=== PATIENT | male | born 1990 | race African-American/Black ===

== ENCOUNTER 2017-09-11 15:58 | Emergency (ER) | payer OTHER ==
[2017-09-11 16:03] VITALS: BP 157/88; PULSE 120; TEMP 98; BMI 36.6
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
[2017-09-11] MEDS ORDERED: morphine SULFATE 4 MG/ML VIAL IVPUSH ONE (16:27)
[2017-09-11] MEDS ORDERED: morphine CARPU-JECT 2 MG/1 ML DISP.SYRIN IM ONE (17:34)
[2017-09-11] MEDS ORDERED: MORPHINE SULFATE 10 MG/1 ML *VIAL ONE (17:36)
[2017-09-11] MEDS ORDERED: morphine CARPU-JECT 4 MG/1 ML DISP.SYRIN IVPUSH ONE (19:04)
[2017-09-11] MEDS ORDERED: morphine SULFATE 4 MG/ML VIAL ONE (19:27)
--- NOTE | 2017-09-11 21:17 | PDOC ---
History of Present Illness - General Chief Complaint: Injury Stated Complaint: INJURY, FALL Time Seen by Provider: 09/11/17 16:14 Past History - Past Medical History Allergies/Adverse Reactions: Allergies Allergy/AdvReac Type Severity Reaction Status Date / Time No Known Allergies Allergy Verified 09/11/17 16:00 Home Medications: Ambulatory Orders NK [No Known Home Medication] 09/11/17 COPD: No - Suicide/Smoking/Psychosocial Hx Smoking History: Current every day smoker Number of Cigarettes Smoked Daily: 5 Information on smoking cessation initiated: No Hx Alcohol Use: No Drug/Substance Use Hx: No Substance Use Type: None *Physical Exam - Vital Signs Last Vital Signs Temp Pulse Resp BP Pulse Ox 98 F 120 H 18 157/88 100 09/11/17 16:00 09/11/17 16:00 09/11/17 16:00 09/11/17 16:00 09/11/17 16:00 ED Treatment Course - Medications Given in the ED: ED Medications Discontinued Medications Generic Name Dose Route Start Last Admin Trade Name Mayi PRN Reason Stop Dose Admin Morphine Sulfate 4 mg 09/11/17 16:27 09/11/17 17:35 Morphine Sulfate IVPUSH 09/11/17 16:28 Not Given ONCE ONE Morphine Sulfate 4 mg 09/11/17 17:34 09/11/17 17:42 Morphine Injection - IM 09/11/17 17:35 4 mg ONCE ONE Administration Morphine Sulfate 4 mg 09/11/17 19:04 09/11/17 19:29 Morphine Injection - IVPUSH 09/11/17 19:05 4 mg ONCE ONE Administration *DC/Admit/Observation/Transfer - Referrals Referrals: LUISA MONSIVAIS [Primary Care Provider] - - Patient Instructions - Post Discharge Activity
--- NOTE | 2017-09-11 22:00 | PDOC ---
Attending Attestation - Resident Resident Name: Cindy Davila - ED Attending Attestation I have performed the following: I have examined & evaluated the patient, The case was reviewed & discussed with the resident, I agree w/resident's findings & plan, Exceptions are as noted - HPI HPI: 09/11/17 21:59 27 yo male fell and sustained left ankle pain - Physicial Exam PE: 09/11/17 22:00 alert and conversant 27 yo male p/w tender and swollen left ankle head ncat,no hematoma,no abrasions neck no cervical tenderness lungs cta b/l no ribcage pain abd soft,nontender extremities left knee abrasion, left ankle swelling and tenderness,good pt and dp pulses neuro axo3 09/11/17 22:03 - Medical Decision Making 09/11/17 22:05 radiograph reveals fractured fibula -pt's left ankle was splinted -L knee abasion cleaned -referred to Dr Lazaro
== END 2017-09-11 22:05 | disposition home or self-care (01) ==
LOC: JER 15:58
PROC: 3E023NZ Introduction of Analgesics, Hypnotics, Sedatives into Muscle, Percutaneous Approach (ICD-10-PCS; principal; 2017-09-11)
PROC: 3E033NZ Introduction of Analgesics, Hypnotics, Sedatives into Peripheral Vein, Percutaneous Approach (ICD-10-PCS; 2017-09-11)
PROC: 2W3RX1Z Immobilization of Left Lower Leg using Splint (ICD-10-PCS; 2017-09-11)
DX: S82.492A Other fracture of shaft of left fibula, initial encounter for closed fracture (principal); S82.245A Nondisplaced spiral fracture of shaft of left tibia, initial encounter for closed fracture; S80.212A Abrasion, left knee, initial encounter; Y04.2XXA Assault by strike against or bumped into by another person, initial encounter; Y93.89 Activity, other specified; Y92.89 Other specified places as the place of occurrence of the external cause; Y99.8 Other external cause status; Y07.9 Unspecified perpetrator of maltreatment and neglect
CPT/HCPCS: 29515; 73523-TC-FY; 73552-TC-LT-FY; 73562-TC-LT-FY; 73610-TC-LT-FY; 73630-TC-LT; 96372; 96374; 99282-25

== ENCOUNTER 2017-09-29 06:09 | Day surgery (SDC) | payer OTHER ==
[2017-09-23 09:32] VITALS: BMI 37.1
[2017-09-29] MEDS ORDERED: ROPIVACAINE HCL 0.5% 30ML VIAL ONE (07:23)
[2017-09-29] MEDS ORDERED: MIDAZOLAM HCL 2 MG/2 ML SINGLE DOSE VIAL ONE (07:24)
[2017-09-29] MEDS ORDERED: DEXAMETHASONE SOD PHOSPHATE/PF 10 MG/ML SDV ONE (07:26)
--- NOTE | 2017-09-29 07:46 | OP ---
Operative Note - Note: Operative Date: 09/29/17 Pre-Operative Diagnosis: left ankle unstable fracture Operation: left ankle open reduction internal fixation Implants: arthrex distal fibular plate / camila boykin Post-Operative Diagnosis: Same as Pre-op Surgeon: Arcadio Macdonald [employer] Electrical Engineer: Cyrus Ramirez Anesthesiologist/BAG REPAIRER: Ugo Sosa Anesthesia: Fractional Operative Report Dictated: Yes
[2017-09-29] MEDS ORDERED: SUCCINYLCHOLINE CHLORIDE 200 MG/10 ML VIAL ONE (08:13)
[2017-09-29] MEDS ORDERED: PROPOFOL 20 ML ONE ×2 (08:13→08:23)
[2017-09-29] MEDS ORDERED: ceFAZolin SODIUM 1 GM VIAL ONE (08:27)
[2017-09-29] MEDS ORDERED: ONDANSETRON 4 MG/2 ML VIAL ONE (10:02)
[2017-09-29] MEDS ORDERED: ONDANSETRON 4 MG/2 ML VIAL IVPUSH ONE (10:07)
[2017-09-29] MEDS ORDERED: ONDANSETRON 4 MG/2 ML VIAL IVPUSH PRN (10:14)
[2017-09-29] MEDS ORDERED: oxyCODONE HCL 5 MG TABLET PO PRN ×2 (10:14)
[2017-09-29] MEDS ORDERED: LACTATED RINGERS SOLUTION 1,000 ML IV SCH (10:15)
[2017-09-29] MEDS ORDERED: oxyCODONE HCL 5 MG TABLET ONE ×2 (10:48→11:38)
[2017-09-29] MEDS ORDERED: oxyCODONE HCL 5 MG TABLET PO ONE (10:51)
[2017-09-29] MEDS ORDERED: KETOROLAC TROMETHAMINE 30 MG/1 ML VIAL ONE (11:02)
[2017-09-29] MEDS ORDERED: KETOROLAC TROMETHAMINE 30 MG/1 ML VIAL IVPUSH ONE (11:02)
--- NOTE | 2017-09-29 11:15 | OP ---
DATE OF OPERATION: 09/29/2017 PREOPERATIVE DIAGNOSIS: Left ankle unstable fracture. POSTOPERATIVE DIAGNOSIS: Left ankle unstable fracture. PROCEDURES: Left ankle open reduction and internal fixation, as well as fixation of syndesmosis. SURGEON: Arcadio Tariq MD [employer] REPORTER: Cyrus Ramirez MD, whose skillful assistance was necessary for the safe and timely performance of this procedure. ANESTHESIA: Regional plus general. COMPLICATIONS: None. IMPLANTS: Arthrex distal fibular plate, 8-hole, with two 3.5-mm lag screws, one locking and the remainder nonlocking screws for the plate, as well as two TightRopes. BLOOD LOSS: 20 mL. POSTOPERATIVE CONDITION: Stable. INDICATIONS: This is a pleasant gentleman who sustained injury to the left ankle. X-rays demonstrated a fracture with widening of the syndesmosis and medial clear space. The treatment options, including non-operative versus operative management were discussed. Operative risks were reviewed in detail, including bleeding, infection, neurovascular injury, need for further surgery, postoperative pain and stiffness, nonunion, malunion, hardware failure or cutout. We discussed medical risks, such as heart attack, stroke, DVT, PE and . I reviewed the rehabilitation protocol after surgery. I addressed all of the patient's questions and concerns. He voiced understanding and elected to proceed. PROCEDURE: The patient was brought to the operating room, after administration of a regional block in the preoperative holding area. The left lower extremity was prepped and draped in the usual sterile fashion. A preoperative dose of antibiotics was given and the usual timeout procedure was performed. The incision was now planned out over the distal fibular fracture. The incision was carried down through skin to subcutaneous tissue. Blunt spreading was used to expose the fascia. The superficial peroneal nerve was identified and protected throughout the case. The fascia was then split in line with its fibers. The periosteum was elevated both anteriorly and posteriorly off of the fibula to expose the fracture site. A long fibular spiral fracture was identified. It should be noted that prior to the incision, the limb was exsanguinated and then the tourniquet was inflated to 300 mmHg. The fracture site was now debrided of any loose debris and irrigated. A fracture-reduction forceps was now used to bring the fracture into anatomic reduction. The fracture was examined fluoroscopically and fracture reduction was satisfactory. At this point, two lag screws were placed in the [id number] direction. The more distal lag screw did cause a small crack in the fibular fracture. However, the construct was stable and both fracture-reduction forceps were removed. The neutralization plate was now chosen, an 8-hole, and affixed to the side of the bone. This was done proximally using all cortical screws. No distal hole or locking screw was used. In the third hole up, a cortical screw was used. Having secured the fracture now in place, fluoroscopy was used to examine the construct. While the fibula was in anatomic reduction, the mortise remained widened. Decision was now made to place two TightRopes. Both TightRopes were drilled across the fibula and through the tibia. The TightRope was then toggled into place, reducing down the syndesmosis and securing the overall construct. Live fluoroscopy was used now to confirm that the ankle was stable and it was. At this point, the sutures were cut. The wound was irrigated. The deep tissue was approximated using 0 Vicryl. The subcutaneous tissue was approximated using 2-0 Vicryl. The skin was closed using a running 4-0 nylon. Sterile dressings were placed. The patient was placed into a short-leg cast which was bivalved. He was extubated and transferred to the recovery room in stable condition. ARCADIO TARIQ M.D. NAVID/[id number] MTDD
[2017-09-29 11:50] VITALS: TEMP 97.7
[2017-09-29 12:46] VITALS: BP 144/82; PULSE 82
== END 2017-09-29 12:50 | disposition home or self-care (01) ==
LOC: FASU 06:09
PROVIDERS: ATTEND Orthopaedic Surgery Sports Medicine
PROC: 0SSG0ZZ Reposition Left Ankle Joint, Open Approach (ICD-10-PCS; 2017-09-29)
PROC: 0QSK04Z Reposition Left Fibula with Internal Fixation Device, Open Approach (ICD-10-PCS; principal; 2017-09-29 08:34)
DX: S82.62XA Displaced fracture of lateral malleolus of left fibula, initial encounter for closed fracture (principal); S93.432A Sprain of tibiofibular ligament of left ankle, initial encounter; X58.XXXA Exposure to other specified factors, initial encounter; Y93.9 Activity, unspecified; Y92.9 Unspecified place or not applicable
CPT/HCPCS: 73610-TC-LT-FY; 76000-TC-FY; 94760

== ENCOUNTER 2019-07-05 07:59 | Emergency (ER) | payer OTHER ==
--- NOTE | 2019-07-05 08:08 | PDOC ---
History of Present Illness - General Chief Complaint: Cold Symptoms Stated Complaint: SORE THROAT,COUGH Time Seen by Provider: 07/05/19 08:02 History Source: Patient Exam Limitations: No Limitations - History of Present Illness Initial Comments: 07/05/19 08:02 29 y/o male with cough sore throat, N/V/D, and body aches for 3 days. Taking Nyquil and Dayquil. No SOB or chest pain. No traveling. 07/05/19 08:05 Is this a multiple visit Asthma Patient?: No Past History - Past Medical History Allergies/Adverse Reactions: Allergies Allergy/AdvReac Type Severity Reaction Status Date / Time codeine Allergy Severe Itching Verified 07/05/19 08:01 Home Medications: Ambulatory Orders D-Methorphan/PE/Acetaminophen [Vicks Dayquil Liquicaps] 2 each PO PRN PRN Dm/Acetaminophen/Doxylamine [Vicks Nyquil Liquicaps] 2 each PO HS 07/05/19 Oseltamivir Phosphate [Tamiflu] 75 mg PO BID #10 capsule 07/05/19 Anemia: No Asthma: No Cancer: No Cardiac Disorders: No CVA: No COPD: No CHF: No DVT: No Dementia: No Diabetes: No GI Disorders: No Disorders: No HTN: No Hypercholesterolemia: No Liver Disease: No Seizures: No Thyroid Disease: No - Surgical History Abdominal Surgery: No Appendectomy: No Cardiac Surgery: No Cholecystectomy: No Lung Surgery: No Neurologic Surgery: No Orthopedic Surgery: Yes (RIGHT SHOULDER SURGERY AGE 16) - Psycho Social/Smoking Cessation Hx Smoking History: Current every day smoker Have you smoked in the past 12 months: Yes Number of Cigarettes Smoked Daily: 2 'Breaking Loose' booklet given: 09/16/17 Hx Alcohol Use: No Drug/Substance Use Hx: No Substance Use Type: None Hx Substance Use Treatment: No Review of Systems - Review of Systems Able to Perform ROS?: Yes Is the patient limited [place] proficient: No Constitutional: Yes: Fever. No: Chills HEENTM: Yes: Throat Pain Respiratory: Yes: Cough. No: Shortness of Breath Cardiac (ROS): No: Chest Pain ABD/GI: Yes: Diarrhea, Nausea, Vomiting Musculoskeletal: No: Back Pain All Other Systems: Reviewed and Negative *Physical Exam - Physical Exam General Appearance: Yes: Nourished, Appropriately Dressed. No: Apparent Distress HEENT: positive: EOMI, CHRAAN, Normal ENT Inspection, Normal Voice, Symmetrical, Pharynx Normal (no erythema or peritonsillar abscess, geographic tongue noted) Neck: positive: Trachea midline, Normal Thyroid, Supple. negative: Tender, Rigid Respiratory/Chest: positive: Lungs Clear, Normal Breath Sounds. negative: Chest Tender, Respiratory Distress Cardiovascular: positive: Regular Rhythm, Regular Rate, S1, S2. negative: Edema , JVD, Murmur Vascular Pulses: Femoral (R): 4+, Femoral (L): 4+, Carotid (R): 4+, Carotid (L) : 4+, Dorsalis-Pedis (R): 4+, Doralis-Pedis (L): 4+ Gastrointestinal/Abdominal: positive: Normal Bowel Sounds, Flat, Soft. negative : Tender, Organomegaly, Pulsatile Mass Lymphatic: negative: Adenopathy, Tenderness, Other Musculoskeletal: positive: Normal Inspection. 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 II-XII NML intact, Fully Oriented, Alert, Normal Mood/ Affect, Normal Response, Motor Strength 5/ ED Treatment Course - ADDITIONAL ORDERS Additional order review: 07/05/19 08:07 Pt appears to have flu like symptoms for last 3 days, outside window but will treat with Tamiflu Will check for strep Pt is in agreement with plan 07/05/19 08:34 Strep test negative Discharge - Discharge Information Problems reviewed: Yes Clinical Impression/Diagnosis: Viral syndrome Condition: Good Disposition: HOME - Admission No - Follow up/Referral - Patient Discharge Instructions Patient Printed Discharge Instructions: DI for Viral Upper Respiratory Infection -- Adult Additional Instructions: Fluids, rest, Motrin Tamiflu 75 mg 2x/day for If worsen return to ER - Post Discharge Activity Work/Back to School Note: Back to Work
[2019-07-05 08:16] VITALS: BP 143/90; PULSE 92; TEMP 99; BMI 33.1
== END 2019-07-05 08:42 | disposition home or self-care (01) ==
LOC: FER 07:59
DX: B34.9 Viral infection, unspecified (principal); Z88.6 Allergy status to analgesic agent; F17.210 Nicotine dependence, cigarettes, uncomplicated
CPT/HCPCS: 87070; 87880; 99282-25